=== PATIENT | female | born 1935 | race Caucasian/White ===

== ENCOUNTER 2021-06-11 15:54 | Inpatient (IN) | payer MEDICARE ==
[~2021-06-11] VITALS: Ht 157.5 cm; Wt 62.6 kg
[2021-06-11 17:16] LABS: EOSINOPHILS % 2.6 % (0.0-5.0); HEMATOCRIT. 25.7 % (36.0-48.0); HEMOGLOBIN. 9.2 g/dL (12.0-16.0); LYMPHOCYTES % 16.4 % (20.0-50.0); MEAN CORPUSCULAR HEMOGLOBIN 35.9 pg (28.0-32.0); MEAN CORPUSCULAR VOLUME 100.8 fL (81.0-99.0); MONOCYTES % 10.2 % (2.0-8.0); NEUTROPHILS % 69.8 % (40.0-76.0); PLATELET 186 x1000/uL (130-400); RED BLOOD CELL COUNT 2.55 mill/uL (4.2-5.4); RED CELL DISTRIBUTION WIDTH 13.1 % (11.6-14.6)
[2021-06-11 17:20] LABS: CHLORIDE 101 mEq/L (98-107)
[2021-06-11] MEDS ORDERED: IOHEXOL-350 100 ML BOTTLE ONE (22:52)
[2021-06-12] VITALS: BP 134/68
[2021-06-12] MEDS ORDERED: HYDR-4001 PO (01:17)
[2021-06-12] MEDS ORDERED: ONDA4TAB50 PO (01:17)
[2021-06-12] MEDS ORDERED: INSU100I19 SQ (01:17)
[2021-06-12] MEDS ORDERED: DOCU-150 PO (01:17)
[2021-06-12] MEDS ORDERED: TOPUD PO ×2 (01:17)
[2021-06-12] MEDS ORDERED: FAMO-133 PO (01:17)
[2021-06-12] MEDS ORDERED: INSASP SUBCUT (01:17)
[2021-06-12] MEDS ORDERED: TRAZ-251 PO (01:17)
[2021-06-12] MEDS ORDERED: SEVE800T8 MT (01:17)
[2021-06-12] MEDS ORDERED: IPRA3AMP9 HHN (01:17)
[2021-06-12] MEDS ORDERED: CARV12.545 PO (01:17)
[2021-06-12] MEDS ORDERED: LISI10TA26 PO (01:17)
[2021-06-12] MEDS ORDERED: CLOP75TA33 PO (01:17)
[2021-06-12] MEDS ORDERED: GUAI5SYR3 GT (01:17)
[2021-06-12 04:00] VITALS: BP 160/68
[2021-06-12] MEDS ORDERED: GUAIFENESIN 200MG/10ML SUGAR FREE UDC PO PRN (04:45)
[2021-06-12] MEDS ORDERED: ONDANSETRON HCL 4MG/2ML INJ IV PRN (04:45)
[2021-06-12] MEDS ORDERED: DOCUSATE SODIUM 100MG CAPSULE PO PRN (04:45)
[2021-06-12] MEDS ORDERED: DEXTROSE 50% WATER 50ML SYRINGE IV PRN (04:45)
[2021-06-12] MEDS ORDERED: HYDROCODONE/ACETAMINOPHEN 5/325MG TABLET PO PRN (04:45)
[2021-06-12] MEDS ORDERED: IPRATROPIUM/ALBUTEROL 0.5-3(2.5)MG/3ML NEB HHN PRN (04:45)
[2021-06-12] MEDS ORDERED: ACETAMINOPHEN 325MG TABLET PO PRN (04:45)
[2021-06-12] MEDS: INSULIN LISPRO 100 UNITS/ML SUBCUT SCH ×4 (06:34→20:19)
[2021-06-12] MEDS: BLOOD SUGAR DIAGNOSTIC STRIP TEST SCH ×4 (06:34→20:19)
[2021-06-12 07:16] LABS: BASOPHILS % 0.9 % (0.0-2.0); EOSINOPHILS % 2.8 % (0.0-5.0); HEMATOCRIT. 29.9 % (36.0-48.0); HEMOGLOBIN. 10.1 g/dL (12.0-16.0); LYMPHOCYTES % 17.2 % (20.0-50.0); MEAN CORPUSCULAR HEMOGLOBIN 34.1 pg (28.0-32.0); MEAN CORPUSCULAR VOLUME 101.4 fL (81.0-99.0); MEAN PLATELET VOLUME 7.6 fl (7.4-10.4); NEUTROPHILS % 67.1 % (40.0-76.0); PLATELET 197 x1000/uL (130-400); RED BLOOD CELL COUNT 2.95 mill/uL (4.2-5.4); RED CELL DISTRIBUTION WIDTH 13.1 % (11.6-14.6)
[2021-06-12 08:00] VITALS: BP 168/71
[2021-06-12] MEDS: SEVELAMER CARBONATE 800 MG TABLET PO SCH ×3 (09:40→17:05)
[2021-06-12] MEDS: FAMOTIDINE 20MG TABLET PO SCH (09:41)
[2021-06-12] MEDS: LISINOPRIL 10MG TABLET PO SCH (09:42)
[2021-06-12] MEDS: CARVEDILOL 12.5MG TABLET PO SCH ×2 (09:42→21:20)
[2021-06-12] MEDS: HEPARIN 5000 UNITS/ML VIAL SUBCUT SCH ×2 (09:42→21:21)
[2021-06-12] MEDS ORDERED: FAMOTIDINE 10MG TABLET PO SCH (11:30)
[2021-06-12] MEDS ORDERED: CLOPIDOGREL 75MG TABLET PO SCH (11:30)
[2021-06-12 12:00] VITALS: BP 137/56
[2021-06-12 15:47] LABS: HEPATITIS B SURFACE ANTIGEN NEGATIVE
[2021-06-12 16:00] VITALS: BP 150/55
[2021-06-12] MEDS ORDERED: CARVEDILOL 12.5MG TABLET PO SCH (17:00)
[2021-06-12] MEDS ORDERED: POTASSIUM CHLORIDE 20MEQ/PACKET PO NR (18:45)
[2021-06-12 20:00] VITALS: BP 144/48
[2021-06-12] MEDS ORDERED: TRAZODONE HCL 50MG TABLET PO SCH (21:00)
[2021-06-12] MEDS: TRAZODONE HCL 50MG TABLET PO SCH (21:20)
[2021-06-12] MEDS: AMLODIPINE 2.5MG TABLET PO SCH (21:21)
[2021-06-12] MEDS: ATORVASTATIN CALCIUM 20MG TABLET PO SCH (21:22)
[2021-06-13] VITALS (7 sets, daily range): BP systolic 126–187; BP diastolic 52–80
[2021-06-13] MEDS: BLOOD SUGAR DIAGNOSTIC STRIP TEST SCH ×4 (06:17→21:40)
[2021-06-13] MEDS: INSULIN LISPRO 100 UNITS/ML SUBCUT SCH ×4 (06:17→21:39)
[2021-06-13 07:54] LABS: BASOPHILS % 1.4 % (0.0-2.0); EOSINOPHILS % 2.6 % (0.0-5.0); HEMATOCRIT. 27.9 % (36.0-48.0); HEMOGLOBIN. 9.7 g/dL (12.0-16.0); LYMPHOCYTES % 22.4 % (20.0-50.0); MEAN CORPUSCULAR HEMOGLOBIN 35.1 pg (28.0-32.0); MEAN CORPUSCULAR VOLUME 100.8 fL (81.0-99.0); MEAN PLATELET VOLUME 7.7 fl (7.4-10.4); MONOCYTES % 10.7 % (2.0-8.0); NEUTROPHILS % 62.9 % (40.0-76.0); PLATELET 205 x1000/uL (130-400); RED BLOOD CELL COUNT 2.77 mill/uL (4.2-5.4); RED CELL DISTRIBUTION WIDTH 13.1 % (11.6-14.6)
[2021-06-13] MEDS: HEPARIN 5000 UNITS/ML VIAL SUBCUT SCH ×2 (08:30→21:38)
[2021-06-13] MEDS: AMLODIPINE 2.5MG TABLET PO SCH ×2 (08:30→21:35)
[2021-06-13] MEDS: SEVELAMER CARBONATE 800 MG TABLET PO SCH ×3 (08:30→16:30)
[2021-06-13] MEDS: CARVEDILOL 12.5MG TABLET PO SCH ×2 (08:31→21:36)
[2021-06-13] MEDS: FAMOTIDINE 20MG TABLET PO SCH (08:32)
[2021-06-13] MEDS: FOLIC ACID/VITAMIN B COMP W-C TABLET PO SCH (08:32)
[2021-06-13] MEDS: LISINOPRIL 10MG TABLET PO SCH ×2 (08:32→21:35)
[2021-06-13 09:04] LABS: PHOSPHORUS 2.8 mg/dL (2.5-4.9)
[2021-06-13] MEDS: ATORVASTATIN CALCIUM 20MG TABLET PO SCH (21:35)
[2021-06-13] MEDS: TRAZODONE HCL 50MG TABLET PO SCH (21:37)
[2021-06-14] VITALS: BP 147/76
[2021-06-14 04:00] VITALS: BP 157/49
[2021-06-14] MEDS: BLOOD SUGAR DIAGNOSTIC STRIP TEST SCH ×4 (07:40→21:00)
[2021-06-14] MEDS: INSULIN LISPRO 100 UNITS/ML SUBCUT SCH ×4 (08:10→21:00)
[2021-06-14] MEDS: SEVELAMER CARBONATE 800 MG TABLET PO SCH ×3 (08:10→16:30)
[2021-06-14] MEDS: HEPARIN 5000 UNITS/ML VIAL SUBCUT SCH ×2 (09:41→21:00)
[2021-06-14] MEDS: AMLODIPINE 2.5MG TABLET PO SCH ×2 (09:42→21:00)
[2021-06-14] MEDS: FAMOTIDINE 20MG TABLET PO SCH (09:42)
[2021-06-14] MEDS: LISINOPRIL 10MG TABLET PO SCH ×2 (09:44→21:09)
[2021-06-14] MEDS: CARVEDILOL 12.5MG TABLET PO SCH ×2 (09:44→21:00)
[2021-06-14] MEDS: FOLIC ACID/VITAMIN B COMP W-C TABLET PO SCH (09:44)
[2021-06-14 12:00] VITALS: BP 125/63
[2021-06-14 16:00] VITALS: BP 122/60
[2021-06-14 20:00] VITALS: BP 165/57
[2021-06-14] MEDS: ATORVASTATIN CALCIUM 20MG TABLET PO SCH (21:04)
[2021-06-14] MEDS: TRAZODONE HCL 50MG TABLET PO SCH (23:18)
[2021-06-15] VITALS: BP 130/44
[2021-06-15 04:00] VITALS: BP 152/53
[2021-06-15 06:09] LABS: BASOPHILS % 1.1 % (0.0-2.0); HEMATOCRIT. 30.2 % (36.0-48.0); HEMOGLOBIN. 10.1 g/dL (12.0-16.0); LYMPHOCYTES % 18.6 % (20.0-50.0); MEAN CORPUSCULAR HEMOGLOBIN 34.8 pg (28.0-32.0); MEAN CORPUSCULAR VOLUME 104.1 fL (81.0-99.0); MONOCYTES % 10.6 % (2.0-8.0); NEUTROPHILS % 67.7 % (40.0-76.0); PLATELET 213 x1000/uL (130-400); RED CELL DISTRIBUTION WIDTH 13.7 % (11.6-14.6)
[2021-06-15] MEDS: BLOOD SUGAR DIAGNOSTIC STRIP TEST SCH ×4 (06:44→21:38)
[2021-06-15] MEDS: INSULIN LISPRO 100 UNITS/ML SUBCUT SCH ×4 (06:44→21:00)
[2021-06-15] MEDS: SEVELAMER CARBONATE 800 MG TABLET PO SCH ×3 (06:45→17:17)
[2021-06-15 08:00] VITALS: BP 156/41
[2021-06-15] MEDS: LISINOPRIL 10MG TABLET PO SCH ×2 (09:00→13:00)
[2021-06-15] MEDS: HEPARIN 5000 UNITS/ML VIAL SUBCUT SCH (09:00)
[2021-06-15] MEDS: CARVEDILOL 12.5MG TABLET PO SCH ×3 (09:00→21:00)
[2021-06-15] MEDS: AMLODIPINE 2.5MG TABLET PO SCH ×3 (09:00→21:00)
[2021-06-15] MEDS: FAMOTIDINE 20MG TABLET PO SCH (09:07)
[2021-06-15] MEDS: FOLIC ACID/VITAMIN B COMP W-C TABLET PO SCH (09:07)
[2021-06-15 12:00] VITALS: BP 152/49
[2021-06-15 16:00] VITALS: BP 130/46
[2021-06-15] MEDS ORDERED: NALOXONE HCL 0.4MG/ML VIAL IV PRN (17:30)
[2021-06-15 20:00] VITALS: BP 138/45
[2021-06-15] MEDS: LISINOPRIL 20MG TABLET PO SCH (21:22)
[2021-06-15] MEDS: ATORVASTATIN CALCIUM 20MG TABLET PO SCH (21:22)
[2021-06-15] MEDS: TRAZODONE HCL 50MG TABLET PO SCH (21:23)
[2021-06-16] VITALS: BP 100/38
[2021-06-16 04:00] VITALS: BP 149/51
[2021-06-16] MEDS: BLOOD SUGAR DIAGNOSTIC STRIP TEST SCH ×4 (05:43→20:21)
[2021-06-16] MEDS: SEVELAMER CARBONATE 800 MG TABLET PO SCH ×3 (05:43→16:54)
[2021-06-16] MEDS: INSULIN LISPRO 100 UNITS/ML SUBCUT SCH ×4 (05:58→20:21)
[2021-06-16 06:21] LABS: BASOPHILS % 0.7 % (0.0-2.0); EOSINOPHILS % 1.6 % (0.0-5.0); HEMATOCRIT. 26.1 % (36.0-48.0); LYMPHOCYTES % 17.2 % (20.0-50.0); MEAN CORPUSCULAR VOLUME 101.4 fL (81.0-99.0); MEAN PLATELET VOLUME 7.6 fl (7.4-10.4); MONOCYTES % 12.1 % (2.0-8.0); NEUTROPHILS % 68.4 % (40.0-76.0); PLATELET 199 x1000/uL (130-400); RED BLOOD CELL COUNT 2.58 mill/uL (4.2-5.4); RED CELL DISTRIBUTION WIDTH 13.5 % (11.6-14.6)
[2021-06-16 08:00] VITALS: BP 150/51
[2021-06-16 08:16] LABS: PROTHROMBIN TIME 10.9 sec (9.6-11.0)
[2021-06-16] MEDS: CARVEDILOL 12.5MG TABLET PO SCH ×2 (09:00→21:29)
[2021-06-16] MEDS: FAMOTIDINE 20MG TABLET PO SCH (09:20)
[2021-06-16] MEDS: LISINOPRIL 20MG TABLET PO SCH ×2 (09:20→21:28)
[2021-06-16] MEDS: AMLODIPINE 2.5MG TABLET PO SCH ×2 (09:21→21:28)
[2021-06-16] MEDS: FOLIC ACID/VITAMIN B COMP W-C TABLET PO SCH (09:21)
[2021-06-16 12:00] VITALS: BP 174/58
[2021-06-16 16:00] VITALS: BP 173/60
[2021-06-16 20:00] VITALS: BP 163/51
[2021-06-16] MEDS: TRAZODONE HCL 50MG TABLET PO SCH (21:29)
[2021-06-16] MEDS: ATORVASTATIN CALCIUM 20MG TABLET PO SCH (21:29)
[2021-06-17] VITALS: BP 146/57
[2021-06-17 04:00] VITALS: BP 169/59
[2021-06-17] MEDS: BLOOD SUGAR DIAGNOSTIC STRIP TEST SCH ×4 (06:25→20:30)
[2021-06-17] MEDS: INSULIN LISPRO 100 UNITS/ML SUBCUT SCH ×4 (06:25→20:30)
[2021-06-17] MEDS: SEVELAMER CARBONATE 800 MG TABLET PO SCH ×3 (06:30→16:48)
[2021-06-17 07:35] LABS: BASOPHILS % 0.7 % (0.0-2.0); EOSINOPHILS % 1.7 % (0.0-5.0); HEMATOCRIT. 29.6 % (36.0-48.0); HEMOGLOBIN. 10.5 g/dL (12.0-16.0); LYMPHOCYTES % 13.9 % (20.0-50.0); MEAN CORPUSCULAR HEMOGLOBIN 35.7 pg (28.0-32.0); MEAN CORPUSCULAR VOLUME 100.5 fL (81.0-99.0); MEAN PLATELET VOLUME 7.7 fl (7.4-10.4); MONOCYTES % 9.3 % (2.0-8.0); NEUTROPHILS % 74.4 % (40.0-76.0); PLATELET 239 x1000/uL (130-400); RED BLOOD CELL COUNT 2.94 mill/uL (4.2-5.4); RED CELL DISTRIBUTION WIDTH 13.5 % (11.6-14.6)
[2021-06-17 08:00] VITALS: BP 160/75
[2021-06-17] MEDS ORDERED: SODIUM BICARBONATE 4% (2.4MEQ) 5ML VIAL IV ONE (08:46)
[2021-06-17] MEDS: AMLODIPINE 2.5MG TABLET PO SCH ×2 (09:56→20:28)
[2021-06-17] MEDS: FAMOTIDINE 20MG TABLET PO SCH (09:57)
[2021-06-17] MEDS: FOLIC ACID/VITAMIN B COMP W-C TABLET PO SCH (09:57)
[2021-06-17] MEDS: LISINOPRIL 20MG TABLET PO SCH ×2 (09:58→20:29)
[2021-06-17] MEDS: CARVEDILOL 12.5MG TABLET PO SCH ×2 (09:59→20:27)
[2021-06-17 12:00] VITALS: BP 101/44
[2021-06-17 16:00] VITALS: BP 100/71
[2021-06-17 20:00] VITALS: BP 140/38
[2021-06-17] MEDS: TRAZODONE HCL 50MG TABLET PO SCH (20:27)
[2021-06-17] MEDS: ATORVASTATIN CALCIUM 20MG TABLET PO SCH (20:28)
[2021-06-18] VITALS (8 sets, daily range): BP systolic 96–140; BP diastolic 45–73
[2021-06-18] MEDS: BLOOD SUGAR DIAGNOSTIC STRIP TEST SCH ×4 (06:10→21:15)
[2021-06-18] MEDS: SEVELAMER CARBONATE 800 MG TABLET PO SCH ×3 (06:14→17:10)
[2021-06-18] MEDS: INSULIN LISPRO 100 UNITS/ML SUBCUT SCH ×4 (06:15→21:00)
[2021-06-18 08:26] LABS: BASOPHILS % 0.6 % (0.0-2.0); HEMATOCRIT. 28.9 % (36.0-48.0); HEMOGLOBIN. 10.1 g/dL (12.0-16.0); MEAN CORPUSCULAR HEMOGLOBIN 34.9 pg (28.0-32.0); MEAN CORPUSCULAR VOLUME 99.8 fL (81.0-99.0); MEAN PLATELET VOLUME 7.8 fl (7.4-10.4); MONOCYTES % 9.5 % (2.0-8.0); NEUTROPHILS % 78.9 % (40.0-76.0); PLATELET 243 x1000/uL (130-400); RED CELL DISTRIBUTION WIDTH 13.6 % (11.6-14.6)
[2021-06-18] MEDS: AMLODIPINE 2.5MG TABLET PO SCH ×2 (08:43→21:00)
[2021-06-18] MEDS: CARVEDILOL 12.5MG TABLET PO SCH ×2 (08:43→21:00)
[2021-06-18] MEDS: LISINOPRIL 20MG TABLET PO SCH ×2 (08:43→21:00)
[2021-06-18] MEDS: FAMOTIDINE 20MG TABLET PO SCH (08:44)
[2021-06-18] MEDS: FOLIC ACID/VITAMIN B COMP W-C TABLET PO SCH (08:44)
[2021-06-18 12:34] LABS: BG BASE EXCESS -0.4 mmol/L (-2.0-2.0); BG CARBOXYHEMOGLOBIN 0.3 % (0.5-1.5); BG FRACTION INSPIRED OXYGEN 21; BG HCO3 ACT 22.3 mmol/L (22.0-26.0); BG METHEMOGLOBIN 0.3 % (0.0-1.5); BG OXYHEMOGLOBIN 94.4 % (94.0-97.0); BG PCO2 29.9 mmHg (35.0-45.0); BG PO2 73.6 mmHg (75.0-100.0); BG SAMPLE SITE LEFT BRACHIAL; BG TOTAL HEMOGLOBIN 10.4 g/dL (12.0-18.0); BG VENT MODE ROOM AIR
[2021-06-18] MEDS ORDERED: AMLO2.5T45 PO (14:59)
[2021-06-18] MEDS ORDERED: LISI20TA31 PO (14:59)
[2021-06-18] MEDS ORDERED: COR12 PO (14:59)
[2021-06-18] MEDS ORDERED: ATOR20TA PO (14:59)
[2021-06-18] MEDS: TRAZODONE HCL 50MG TABLET PO SCH (21:00)
[2021-06-18] MEDS: ATORVASTATIN CALCIUM 20MG TABLET PO SCH (21:00)
== END 2021-06-18 21:42 | DRG 189 ==
LOC: ER 15:54 → EDBEDREQ 19:10 → MICUSO 22:30 → 8WST 22:40 → 7WST 06-13 20:25 → 7EST 06-14 15:44
PROVIDERS: ADMIT Internal Medicine; ATTEND Internal Medicine
PROC: 5A1D70Z Performance of Urinary Filtration, Intermittent, Less than 6 Hours Per Day (ICD-10-PCS; 2021-06-13)
PROC: 5A1D70Z Performance of Urinary Filtration, Intermittent, Less than 6 Hours Per Day (ICD-10-PCS; 2021-06-15)
PROC: 0W993ZZ Drainage of Right Pleural Cavity, Percutaneous Approach (ICD-10-PCS; principal; 2021-06-17)
PROC: 5A1D70Z Performance of Urinary Filtration, Intermittent, Less than 6 Hours Per Day (ICD-10-PCS; 2021-06-18)
DX: J96.01 Acute respiratory failure with hypoxia (principal); N18.6 End stage renal disease; I50.43 Acute on chronic combined systolic (congestive) and diastolic (congestive) heart failure; E44.0 Moderate protein-calorie malnutrition; I13.2 Hypertensive heart and chronic kidney disease with heart failure and with stage 5 chronic kidney disease, or end stage renal disease; J91.8 Pleural effusion in other conditions classified elsewhere; I42.8 Other cardiomyopathies; D72.821 Monocytosis (symptomatic); E11.22 Type 2 diabetes mellitus with diabetic chronic kidney disease; E78.00 Pure hypercholesterolemia, unspecified; E78.1 Pure hyperglyceridemia; E78.5 Hyperlipidemia, unspecified; E87.6 Hypokalemia; F03.90 Unspecified dementia, unspecified severity, without behavioral disturbance, psychotic disturbance, mood disturbance, and anxiety; F32.9 Major depressive disorder, single episode, unspecified; I27.20 Pulmonary hypertension, unspecified; Z66 Do not resuscitate; D63.8 Anemia in other chronic diseases classified elsewhere; Z20.822 Contact with and (suspected) exposure to COVID-19; Z99.2 Dependence on renal dialysis; Z79.899 Other long term (current) drug therapy; Z79.4 Long term (current) use of insulin; Z95.0 Presence of cardiac pacemaker; Z68.25 Body mass index [BMI] 25.0-25.9, adult
CPT/HCPCS: 32555; 36415; 36600; 71045; 71275; 80048; 80053; 80061; 82375; 82728; 82805; 82962; 83036; 83615; 83735; 83880; 84100; 84155; 84443; 84484; 85025; 85379; 86140; 86705; 86709; 86803; 87340; 87426; 88108; 88312; 93005; 93306; 97162; 97165; 99285; A6261; C1893; J1644; J1815; J3490; Q9967; U0003; U0005